=== PATIENT | female | born 1985 | race African-American/Black ===

== ENCOUNTER 2017-05-03 20:55 | Emergency (ER) | payer BC, OTHER ==
[~2017-05-03] VITALS: Ht 175.3 cm; Wt 61.5 kg
[2017-05-03 21:02] VITALS: Ht 175.3 cm; Wt 61.5 kg
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
[2017-05-04] MEDS ORDERED: CYCL-319 PO (00:38)
== END 2017-05-04 00:44 | disposition home or self-care (01) ==
LOC: FTE 20:55
DX: M62.838 Other muscle spasm (principal)
CPT/HCPCS: 72040; Z7502